=== PATIENT | male | born 1955 | race Caucasian/White ===

== ENCOUNTER 2017-02-25 11:25 | Inpatient (IN) | payer MEDICAID ==
[~2017-02-25] VITALS: Ht 175.3 cm; Wt 83.9 kg
[2017-02-25] MEDS ORDERED: IBUPROFEN 600MG TABLET PO STA (11:50)
[2017-02-25 12:07] LABS: BASOPHILS % 0.4 % (0.0-2.0); HEMATOCRIT. 46.8 % (42.0-52.0); HEMOGLOBIN. 15.9 g/dL (14.0-18.0); LYMPHOCYTES % 9.8 % (20.0-50.0); MEAN CORPUSCULAR HEMOGLOBIN 31.3 pg (28.0-32.0); MEAN CORPUSCULAR VOLUME 91.9 fL (80.0-94.0); MONOCYTES % 8.4 % (2.0-8.0); NEUTROPHILS % 81.4 % (40.0-76.0); PLATELET 61 x1000/uL (130-400); RED BLOOD CELL COUNT 5.09 mill/uL (4.7-6.1); RED CELL DISTRIBUTION WIDTH 15.5 % (11.6-14.6)
[2017-02-25 12:15] LABS: PROTHROMBIN TIME 10.1 sec (9.4-11.6)
[2017-02-25 12:30] LABS: CARBON DIOXIDE 22 mEq/L (21-32); CHLORIDE 93 mEq/L (98-107); CREATINE KINASE 188 IU/L (39-308)
[2017-02-25 12:45] LABS: ETHANOL BLOOD 319 mg/dL
[2017-02-25] MEDS ORDERED: SODIUM CHLORIDE 0.9% 1,000 ML IV ONE (14:00)
[2017-02-25] MEDS ORDERED: LORAZEPAM 1MG TABLET PO ONE (17:15)
[2017-02-25] MEDS ORDERED: LORAZEPAM 2MG/ML CPJ IV ONE (22:00)
[2017-02-26] VITALS: BP 129/77
[2017-02-26] MEDS ORDERED: LORAZEPAM 2MG/ML CPJ IV ONE ×3 (01:30→15:15)
[2017-02-26] MEDS ORDERED: ONDANSETRON HCL 4MG/2ML VIAL IV ONE (09:30)
[2017-02-26] MEDS ORDERED: FOLIC ACID 1 MG, THIAMINE HCL 100 MG, MVI, ADULT NO.1 10 ML in DEXTROSE 5% WATER 1,000 ML IV ONE ×4 (15:15)
[2017-02-26 20:00] VITALS: BP 149/91
[2017-02-26] MEDS ORDERED: GABA-529 PO (21:26)
[2017-02-26] MEDS ORDERED: QUET200T PO (21:26)
[2017-02-26] MEDS ORDERED: LISI-186 PO (21:26)
[2017-02-26] MEDS ORDERED: BACL20TA PO (21:26)
[2017-02-26] MEDS ORDERED: MIRT30TA7 PO (21:26)
[2017-02-26] MEDS ORDERED: THIA100T8 PO (21:26)
[2017-02-26] MEDS ORDERED: FOLI-43 PO (21:26)
[2017-02-26] MEDS ORDERED: AMIT25TA9 PO (21:26)
[2017-02-26] MEDS ORDERED: TAMS0.4C31 PO (21:26)
[2017-02-26] MEDS ORDERED: GUAIFENESIN 200MG/10ML SUGAR FREE UDC PO PRN (21:30)
[2017-02-26] MEDS ORDERED: MAGNESIUM/ALUMINUM HYDROXIDE/SIMETHICONE 30ML UDC PO PRN (21:30)
[2017-02-26] MEDS ORDERED: CLONIDINE 0.1MG TABLET PO PRN (21:30)
[2017-02-26] MEDS ORDERED: ACETAMINOPHEN 325MG TABLET PO PRN (21:30)
[2017-02-26] MEDS ORDERED: DIPHENHYDRAMINE 50MG/ML VIAL IV PRN (21:30)
[2017-02-26] MEDS ORDERED: LORAZEPAM 2MG/ML CPJ IV PRN (21:30)
[2017-02-26] MEDS ORDERED: ONDANSETRON HCL 4MG/2ML VIAL IV PRN (21:30)
[2017-02-26] MEDS: SODIUM CHLORIDE 0.9% 1,000 ML IV SCH (23:21)
[2017-02-27] MEDS ORDERED: MVI, ADULT NO.1 10 ML, FOLIC ACID 1 MG, THIAMINE HCL 100 MG in SODIUM CHLORIDE 0.9% 1,0... IV NR ×4
[2017-02-27] MEDS ORDERED: PHENYTOIN SODIUM 1,000 MG in SODIUM CHLORIDE 0.9% 80 ML IV NR (02:00)
[2017-02-27] MEDS: LORAZEPAM 2MG/ML CPJ IV PRN ×5 (03:19→20:18)
[2017-02-27 04:00] VITALS: BP 153/91
[2017-02-27] MEDS ORDERED: CHLORDIAZEPOXIDE 25MG CAPSULE PO SCH (06:00)
[2017-02-27 06:52] LABS: BASOPHILS % 0.5 % (0.0-2.0); EOSINOPHILS % 1.2 % (0.0-5.0); HEMATOCRIT. 43.2 % (42.0-52.0); HEMOGLOBIN. 14.6 g/dL (14.0-18.0); LYMPHOCYTES % 17.7 % (20.0-50.0); MEAN CORPUSCULAR HEMOGLOBIN 31.4 pg (28.0-32.0); MEAN CORPUSCULAR VOLUME 92.7 fL (80.0-94.0); MEAN PLATELET VOLUME 9.1 fl (7.4-10.4); MONOCYTES % 9.5 % (2.0-8.0); NEUTROPHILS % 71.1 % (40.0-76.0); PLATELET 62 x1000/uL (130-400); RED BLOOD CELL COUNT 4.66 mill/uL (4.7-6.1); RED CELL DISTRIBUTION WIDTH 15.4 % (11.6-14.6)
[2017-02-27 08:00] VITALS: BP 129/80
[2017-02-27 08:07] LABS: CARBON DIOXIDE 33 mEq/L (21-32); CHLORIDE 94 mEq/L (98-107)
[2017-02-27] MEDS ORDERED: MAGNESIUM 4 G PREMIX 100 ML IV SCH (09:00)
[2017-02-27] MEDS: TAMSULOSIN HCL 0.4MG SR CAPSULE PO SCH (11:06)
[2017-02-27 12:30] VITALS: BP 153/90
[2017-02-27] MEDS: CHLORDIAZEPOXIDE 25MG CAPSULE PO SCH ×2 (13:29→21:42)
[2017-02-27] MEDS: THIAMINE HCL 100MG TABLET PO SCH (13:33)
[2017-02-27 16:00] VITALS: BP 126/86
[2017-02-27] MEDS: IBUPROFEN 600MG TABLET PO PRN (19:49)
[2017-02-27 20:00] VITALS: BP 137/75
[2017-02-27] MEDS: QUETIAPINE FUMARATE 100MG TABLET PO SCH (23:19)
[2017-02-28] VITALS: BP 147/66
[2017-02-28] MEDS: LORAZEPAM 2MG/ML CPJ IM PRN ×4 (01:25→23:37)
[2017-02-28] MEDS: SODIUM CHLORIDE 0.9% 1,000 ML IV SCH ×4 (03:22→23:22)
[2017-02-28] MEDS: CHLORDIAZEPOXIDE 25MG CAPSULE PO SCH ×3 (05:28→20:53)
[2017-02-28 07:38] LABS: EOSINOPHILS % 2.7 % (0.0-5.0); HEMATOCRIT. 39.3 % (42.0-52.0); HEMOGLOBIN. 13.2 g/dL (14.0-18.0); LYMPHOCYTES % 30.5 % (20.0-50.0); MEAN CORPUSCULAR HEMOGLOBIN 31.2 pg (28.0-32.0); MEAN CORPUSCULAR VOLUME 92.9 fL (80.0-94.0); MONOCYTES % 8.2 % (2.0-8.0); NEUTROPHILS % 57.6 % (40.0-76.0); PLATELET 76 x1000/uL (130-400); RED BLOOD CELL COUNT 4.23 mill/uL (4.7-6.1); RED CELL DISTRIBUTION WIDTH 15.9 % (11.6-14.6)
[2017-02-28] MEDS ORDERED: LIDOCAINE HCL 1% 20ML VIAL (Pyxis) INJ ONE (07:58)
[2017-02-28] MEDS ORDERED: SODIUM BICARBONATE 4% (2.4MEQ) 5ML VIAL IV ONE (07:58)
[2017-02-28 08:00] VITALS: BP 114/68
[2017-02-28] MEDS: THIAMINE HCL 100MG TABLET PO SCH (08:42)
[2017-02-28] MEDS: TAMSULOSIN HCL 0.4MG SR CAPSULE PO SCH (08:42)
[2017-02-28 08:43] LABS: CARBON DIOXIDE 32 mEq/L (21-32); CHLORIDE 100 mEq/L (98-107)
[2017-02-28] MEDS: LORAZEPAM 2MG/ML CPJ IV PRN ×2 (10:46→15:52)
[2017-02-28 12:00] VITALS: BP 118/81
[2017-02-28] MEDS ORDERED: POTASSIUM CHLORIDE 20MEQ TABLET SR PO NR ×2 (14:45→21:00)
[2017-02-28 16:00] VITALS: BP 138/89
[2017-02-28 20:00] VITALS: BP 145/85
[2017-02-28] MEDS: PHENYTOIN SODIUM EXTENDED 100MG CAPSULE PO SCH (20:25)
[2017-02-28] MEDS: QUETIAPINE FUMARATE 100MG TABLET PO SCH (20:53)
[2017-02-28] MEDS ORDERED: MEDICATION NOT ON FORMULARY EA (Quetiapine Fumarate (Seroquel) 300 MG) PO SCH (21:00)
[2017-02-28] MEDS ORDERED: MAGNESIUM 4 G PREMIX 100 ML IV NR (21:00)
[2017-02-28] MEDS: MICONAZOLE NITRATE 2% OINT 71GM TOP SCH (21:02)
[2017-03-01] VITALS: BP 123/75
[2017-03-01] MEDS: LORAZEPAM 2MG/ML CPJ IM PRN ×2 (03:32→17:52)
[2017-03-01 04:00] VITALS: BP 145/85
[2017-03-01] MEDS: CHLORDIAZEPOXIDE 25MG CAPSULE PO SCH ×3 (05:04→21:17)
[2017-03-01 08:00] VITALS: BP 140/89
[2017-03-01 08:02] LABS: CARBON DIOXIDE 32 mEq/L (21-32); CHLORIDE 100 mEq/L (98-107)
[2017-03-01] MEDS: SODIUM CHLORIDE 0.9% 1,000 ML IV SCH (09:22)
[2017-03-01] MEDS: THIAMINE HCL 100MG TABLET PO SCH (09:22)
[2017-03-01] MEDS: PHENYTOIN SODIUM EXTENDED 100MG CAPSULE PO SCH (09:22)
[2017-03-01] MEDS: MICONAZOLE NITRATE 2% OINT 71GM TOP SCH ×2 (09:23→21:17)
[2017-03-01] MEDS: TAMSULOSIN HCL 0.4MG SR CAPSULE PO SCH (09:23)
[2017-03-01] MEDS: LORAZEPAM 2MG/ML CPJ IV PRN ×2 (09:25→13:52)
[2017-03-01] MEDS: IPRATROPIUM/ALBUTEROL 0.5-3(2.5)MG/3ML NEB INH PRN (11:50)
[2017-03-01 12:00] VITALS: BP 135/80
[2017-03-01 20:00] VITALS: BP 134/95
[2017-03-01] MEDS: QUETIAPINE FUMARATE 100MG TABLET PO SCH (21:32)
[2017-03-02 00:33] VITALS: BP 129/88
[2017-03-02 04:00] VITALS: BP 120/80
[2017-03-02] MEDS: CHLORDIAZEPOXIDE 25MG CAPSULE PO SCH ×3 (05:46→21:31)
[2017-03-02 08:00] VITALS: BP 144/76
[2017-03-02] MEDS ORDERED: THIAMINE HCL 100MG TABLET PO SCH (09:00)
[2017-03-02] MEDS: PHENYTOIN SODIUM EXTENDED 100MG CAPSULE PO SCH (10:04)
[2017-03-02] MEDS: MULTIVITAMINS,THER W-MINERALS TABLET PO SCH (10:04)
[2017-03-02] MEDS: QUETIAPINE FUMARATE 100MG TABLET PO SCH ×2 (10:04→21:31)
[2017-03-02] MEDS: THIAMINE HCL 100MG TABLET PO SCH (10:04)
[2017-03-02] MEDS: TAMSULOSIN HCL 0.4MG SR CAPSULE PO SCH (10:06)
[2017-03-02] MEDS: MICONAZOLE NITRATE 2% OINT 71GM TOP SCH ×2 (10:07→21:31)
[2017-03-02 12:00] VITALS: BP 116/72
[2017-03-02] MEDS: GABAPENTIN 300MG CAPSULE PO SCH ×2 (15:13→21:31)
[2017-03-02 16:00] VITALS: BP 122/83
[2017-03-02 20:00] VITALS: BP 118/73
[2017-03-03] VITALS: BP 106/67
[2017-03-03 04:00] VITALS: BP 132/83
[2017-03-03] MEDS: GABAPENTIN 300MG CAPSULE PO SCH ×2 (05:09→13:16)
[2017-03-03] MEDS: CHLORDIAZEPOXIDE 25MG CAPSULE PO SCH (05:09)
[2017-03-03 08:00] VITALS: BP_SYST 117
[2017-03-03] MEDS: IBUPROFEN 600MG TABLET PO PRN (09:49)
[2017-03-03] MEDS: PHENYTOIN SODIUM EXTENDED 100MG CAPSULE PO SCH (09:50)
[2017-03-03] MEDS: THIAMINE HCL 100MG TABLET PO SCH (09:50)
[2017-03-03] MEDS: QUETIAPINE FUMARATE 100MG TABLET PO SCH ×2 (09:51→20:37)
[2017-03-03] MEDS: MULTIVITAMINS,THER W-MINERALS TABLET PO SCH (09:51)
[2017-03-03] MEDS: MICONAZOLE NITRATE 2% OINT 71GM TOP SCH ×2 (09:51→20:37)
[2017-03-03] MEDS: TAMSULOSIN HCL 0.4MG SR CAPSULE PO SCH (09:51)
[2017-03-03] MEDS: IPRATROPIUM/ALBUTEROL 0.5-3(2.5)MG/3ML NEB INH PRN ×5 (10:05→21:36)
[2017-03-03 12:00] VITALS: BP 96/68
[2017-03-03] MEDS ORDERED: GABAPENTIN 400MG CAPSULE PO SCH (13:15)
[2017-03-03 20:00] VITALS: BP 99/59
[2017-03-03] MEDS: GABAPENTIN 400MG CAPSULE PO SCH (20:37)
[2017-03-04] VITALS: BP 112/60
[2017-03-04] MEDS: IPRATROPIUM/ALBUTEROL 0.5-3(2.5)MG/3ML NEB INH PRN ×4 (00:12→13:18)
[2017-03-04] MEDS: IBUPROFEN 600MG TABLET PO PRN (03:49)
[2017-03-04 04:00] VITALS: BP 119/81
[2017-03-04 08:00] VITALS: BP 149/82
[2017-03-04] MEDS: PHENYTOIN SODIUM EXTENDED 100MG CAPSULE PO SCH (08:30)
[2017-03-04] MEDS: TAMSULOSIN HCL 0.4MG SR CAPSULE PO SCH (08:31)
[2017-03-04] MEDS: THIAMINE HCL 100MG TABLET PO SCH (08:32)
[2017-03-04] MEDS: MULTIVITAMINS,THER W-MINERALS TABLET PO SCH (08:32)
[2017-03-04] MEDS: GABAPENTIN 400MG CAPSULE PO SCH (08:32)
[2017-03-04] MEDS: QUETIAPINE FUMARATE 100MG TABLET PO SCH (08:33)
[2017-03-04 12:00] VITALS: BP 139/80
[2017-03-04 12:25] VITALS: BP 139/80
== END 2017-03-04 16:20 | DRG 816 ==
LOC: ER 11:40 → 7WST 02-26 15:23 → ENRESERV 02-26 16:56 → 7WST 02-27 15:27
PROVIDERS: ADMIT Internal Medicine; ATTEND Internal Medicine
PROC: 02H633Z Insertion of Infusion Device into Right Atrium, Percutaneous Approach (ICD-10-PCS; principal; 2017-02-28)
PROC: B5181ZA Fluoroscopy of Superior Vena Cava using Low Osmolar Contrast, Guidance (ICD-10-PCS; 2017-02-28)
PROC: B548ZZA Ultrasonography of Superior Vena Cava, Guidance (ICD-10-PCS; 2017-02-28)
DX: T51.91XA Toxic effect of unspecified alcohol, accidental (unintentional), initial encounter (principal); D69.6 Thrombocytopenia, unspecified; E87.8 Other disorders of electrolyte and fluid balance, not elsewhere classified; E44.0 Moderate protein-calorie malnutrition; G31.2 Degeneration of nervous system due to alcohol; E83.42 Hypomagnesemia; E83.51 Hypocalcemia; F10.239 Alcohol dependence with withdrawal, unspecified; F32.9 Major depressive disorder, single episode, unspecified; F41.1 Generalized anxiety disorder; J44.9 Chronic obstructive pulmonary disease, unspecified; N40.0 Benign prostatic hyperplasia without lower urinary tract symptoms; Z80.9 Family history of malignant neoplasm, unspecified; Z82.49 Family history of ischemic heart disease and other diseases of the circulatory system; Z98.1 Arthrodesis status; Z86.73 Personal history of transient ischemic attack (TIA), and cerebral infarction without residual deficits; G40.909 Epilepsy, unspecified, not intractable, without status epilepticus; M48.00 Spinal stenosis, site unspecified; Z79.899 Other long term (current) drug therapy; Z88.8 Allergy status to other drugs, medicaments and biological substances; Z60.2 Problems related to living alone; Y90.9 Presence of alcohol in blood, level not specified
CPT/HCPCS: 36415; 36569; 70450; 71010; 76937; 77001; 80048; 80053; 80185; 82550; 83735; 85025; 85610; 93005; 94640; 94664; 96361; 96365; 96366; 96375; 96376; 97110; 97116; 97162; 99285; A6261; C1725; C1893; G0482; J1165; J2060; J2405; J3411; J3475; J3490; J7030; J7040; J7050; J7070; J7620

== ENCOUNTER 2017-05-09 10:28 | Emergency (ER) | payer MEDICAID ==
[~2017-05-09] VITALS: Ht 177.8 cm; Wt 90.0 kg
[~2017-05-09 10:28] MED LIST: AMIT25TA9 PO; BACL20TA PO; FOLI-43 PO; GABA-529 PO; LISI-186 PO; MIRT30TA7 PO; QUET200T PO; TAMS0.4C31 PO; THIA100T8 PO
[2017-05-09 11:03] LABS: HEMATOCRIT. 41.8 % (42.0-52.0); MEAN CORPUSCULAR HEMOGLOBIN 31.1 pg (28.0-32.0); MEAN CORPUSCULAR VOLUME 92.7 fL (80.0-94.0); MEAN PLATELET VOLUME 8.5 fl (7.4-10.4); PLATELET 157 x1000/uL (130-400); RED BLOOD CELL COUNT 4.51 mill/uL (4.7-6.1); RED CELL DISTRIBUTION WIDTH 15.1 % (11.6-14.6)
[2017-05-09 11:04] LABS: CLARITY URINE CLEAR (CLEAR); COLOR URINE DARK YELLOW (YELLOW); GLUCOSE URINE NEGATIVE (NEGATIVE); KETONES URINE 1+ (NEGATIVE); LEUKOCYTE ESTERASE URINE NEGATIVE (NEGATIVE); NITRITE URINE NEGATIVE (NEGATIVE); OCCULT BLOOD URINE NEGATIVE (NEGATIVE); PROTEIN URINE TRACE (NEGATIVE); SPECIFIC GRAVITY URINE 1.032 (1.005-1.030)
[2017-05-09 11:12] LABS: CARBON DIOXIDE 29 mEq/L (21-32); CHLORIDE 103 mEq/L (98-107); ETHANOL BLOOD 223 mg/dL
[2017-05-09 11:25] LABS: *AMPHETAMINES SCREEN URINE PRESUMTIVE POSITIVE (NEGATIVE); *BARBITURATES SCREEN URINE NEGATIVE (NEGATIVE); *BENZODIAZEPINES SCREEN URINE PRESUMTIVE POSITIVE (NEGATIVE); *COCAINE SCREEN URINE NEGATIVE (NEGATIVE); CANNABINOID URINE SCREEN PRESUMTIVE POSITIVE (NEGATIVE); METHADONE URINE SCREEN NEGATIVE (NEGATIVE); OPIATES URINE SCREEN NEGATIVE (NEGATIVE); PHENCYCLIDINE URINE SCREEN NEGATIVE (NEGATIVE)
[2017-05-09 11:55] LABS: BG BASE EXCESS 0.8 mmol/L (-2.0-2.0); BG CARBOXYHEMOGLOBIN 2.4 % (0.5-1.5); BG DEOXYHEMOGLOBIN 3.1 % (0.0-5.0); BG FRACTION INSPIRED OXYGEN 28; BG HCO3 ACT 27.9 mmol/L (22.0-26.0); BG METHEMOGLOBIN 0.4 % (0.0-1.5); BG OXYGEN SATURATION 96.8 % (92.0-98.5); BG OXYHEMOGLOBIN 94.1 % (94.0-97.0); BG PCO2 54.3 mmHg (35.0-45.0); BG PH 7.328 (7.350-7.450); BG PO2 98.8 mmHg (75.0-100.0); BG SAMPLE SITE RIGHT BRACHIAL; BG TOTAL HEMOGLOBIN 14.5 g/dL (12.0-18.0); BG VENT MODE NASAL CANNULA
[2017-05-09 12:02] LABS: PLATELET ESTIMATE NORMAL
[2017-05-09] MEDS ORDERED: SODIUM CHLORIDE 0.9% 1,000 ML IV ONE (14:30)
[2017-05-09 18:09] VITALS: BP 153/98
== END 2017-05-09 19:30 | disposition home or self-care (01) ==
LOC: ER 10:41
DX: F10.129 Alcohol abuse with intoxication, unspecified (principal); F15.90 Other stimulant use, unspecified, uncomplicated; F12.10 Cannabis abuse, uncomplicated; F13.10 Sedative, hypnotic or anxiolytic abuse, uncomplicated; J44.9 Chronic obstructive pulmonary disease, unspecified; F32.9 Major depressive disorder, single episode, unspecified; Y90.7 Blood alcohol level of 200-239 mg/100 ml
CPT/HCPCS: 36415; 36600; 70450; 71010; 80053; 80305; 81001; 82375; 82805; 85025; 96360; 96361; 99285; G0482; Z7610; J7030

== ENCOUNTER 2018-09-23 12:13 | Inpatient (IN) | payer MEDICARE, MEDICAID ==
[~2018-09-23] VITALS: Ht 172.7 cm; Wt 75.8 kg
[~2018-09-23 12:13] MED LIST changes: -THIA100T8 PO; +THIA100T88 PO
[2018-09-23] MEDS ORDERED: IPRATROPIUM BROMIDE (0.02%) 0.5MG/2.5ML NEB HHN STA (12:46)
[2018-09-23] MEDS ORDERED: ALBUTEROL (0.083%) 2.5MG/3ML NEB HHN STA (12:46)
[2018-09-23] MEDS ORDERED: METHYLPREDNISOLONE SOD SUCC 125 MG/2 ML VIAL IV STA (12:46)
[2018-09-23] MEDS ORDERED: VANCOMYCIN 1 G PREMIX 200 ML IV ONE (13:00)
[2018-09-23] MEDS ORDERED: PIPERACILLIN/TAZ 3.375G PREMIX 50 ML IV ONE (13:00)
[2018-09-23] MEDS ORDERED: NITROGLYCERIN 0.4MG TABLET SL SL PRN (13:00)
[2018-09-23] MEDS ORDERED: SODIUM CHLORIDE 0.9% 1000ML BAG (SEPSIS BOLUS) IV ONE (13:00)
[2018-09-23] MEDS ORDERED: ASPIRIN 81MG TABLET PO ONE (13:00)
[2018-09-23 13:17] LABS: BASOPHILS % 1.1 % (0.0-2.0); EOSINOPHILS % 2.4 % (0.0-5.0); HEMATOCRIT. 41.4 % (42.0-52.0); HEMOGLOBIN. 13.9 g/dL (14.0-18.0); LYMPHOCYTES % 16.8 % (20.0-50.0); MEAN CORPUSCULAR HEMOGLOBIN 32.4 pg (28.0-32.0); MEAN CORPUSCULAR VOLUME 96.8 fL (80.0-94.0); MEAN PLATELET VOLUME 7.7 fl (7.4-10.4); MONOCYTES % 11.6 % (2.0-8.0); NEUTROPHILS % 68.1 % (40.0-76.0); PLATELET 311 x1000/uL (130-400); RED BLOOD CELL COUNT 4.27 mill/uL (4.7-6.1); RED CELL DISTRIBUTION WIDTH 15.2 % (11.6-14.6)
[2018-09-23 13:22] LABS: CHLORIDE 103 mEq/L (98-107)
[2018-09-23 13:24] LABS: INR 0.9; PROTHROMBIN TIME 9.8 sec (9.6-11.0)
[2018-09-23] MEDS ORDERED: LIDOCAINE HCL 1% 20ML VIAL (Pyxis) INJ ONE (13:52)
[2018-09-23] MEDS ORDERED: IOHEXOL-350 100 ML BOTTLE ONE (15:22)
[2018-09-23] MEDS ORDERED: MAGNESIUM/ALUMINUM HYDROXIDE/SIMETHICONE 30ML UDC PO PRN (17:00)
[2018-09-23] MEDS ORDERED: HYDROCODONE/ACETAMINOPHEN 10/325MG TABLET PO PRN (17:00)
[2018-09-23] MEDS ORDERED: GUAIFENESIN 200MG/10ML SUGAR FREE UDC PO PRN (17:00)
[2018-09-23] MEDS ORDERED: IPRATROPIUM/ALBUTEROL 0.5-3(2.5)MG/3ML NEB INH PRN (17:00)
[2018-09-23] MEDS ORDERED: HYDROMORPHONE HCL/PF 2MG/ML CPJ IV PRN (17:00)
[2018-09-23] MEDS ORDERED: HYDRALAZINE 20MG/ML VIAL IV PRN (17:00)
[2018-09-23] MEDS ORDERED: DIPHENHYDRAMINE 50MG/ML VIAL IV PRN (17:00)
[2018-09-23] MEDS ORDERED: DOCUSATE SODIUM 100MG CAPSULE PO PRN (17:00)
[2018-09-23] MEDS ORDERED: ACETAMINOPHEN 325MG TABLET PO PRN (17:00)
[2018-09-23] MEDS ORDERED: ONDANSETRON HCL 4MG/2ML INJ IV PRN (17:00)
[2018-09-23] MEDS ORDERED: PIPERACILLIN/TAZ 3.375G PREMIX 50 ML IV SCH (20:00)
[2018-09-23 22:45] VITALS: BP 162/92
[2018-09-23 23:13] VITALS: BP 162/92
[2018-09-23 23:58] LABS: CREATINE KINASE 90 IU/L (39-308)
[2018-09-23 23:59] LABS: CREATINE KINASE MB FRACTION 5.3 ng/mL (0.5-3.6)
[2018-09-24] VITALS: BP 168/89
[2018-09-24] MEDS ORDERED: VANCOMYCIN 750 MG PREMIX 150 ML IV SCH
[2018-09-24] MEDS ORDERED: PIPERACILLIN/TAZ 3.375G PREMIX 50 ML IV SCH (02:00)
[2018-09-24 04:00] VITALS: BP 165/98
[2018-09-24] MEDS: SODIUM CHLORIDE 0.9% INJ 3ML FLUSH IVF SCH ×3 (05:04→22:00)
[2018-09-24] MEDS: PIPERACILLIN/TAZ 3.375G PREMIX 50 ML IV SCH ×3 (05:04→20:58)
[2018-09-24] MEDS: HEPARIN 100 UNITS/1 ML VIAL IVF SCH ×2 (06:00→14:00)
[2018-09-24] MEDS: CLONIDINE 0.1MG TABLET PO PRN ×3 (06:30→20:58)
[2018-09-24 06:49] LABS: HEMATOCRIT. 41.8 % (42.0-52.0); HEMOGLOBIN. 14.2 g/dL (14.0-18.0); MEAN CORPUSCULAR HEMOGLOBIN 32.9 pg (28.0-32.0); MEAN CORPUSCULAR VOLUME 96.7 fL (80.0-94.0); MEAN PLATELET VOLUME 8.2 fl (7.4-10.4); PLATELET 322 x1000/uL (130-400); RED BLOOD CELL COUNT 4.33 mill/uL (4.7-6.1); RED CELL DISTRIBUTION WIDTH 15.7 % (11.6-14.6)
[2018-09-24 07:02] LABS: CHLORIDE 107 mEq/L (98-107)
[2018-09-24 07:28] LABS: CREATINE KINASE 95 IU/L (39-308)
[2018-09-24 07:29] LABS: CREATINE KINASE MB FRACTION 5.7 ng/mL (0.5-3.6); T4 FREE 0.98 ng/dL (0.76-1.46)
[2018-09-24 08:07] VITALS: BP 183/109
[2018-09-24] MEDS: ASPIRIN 81MG EC TABLET PO SCH (08:28)
[2018-09-24] MEDS: ENOXAPARIN 40MG/0.4ML SYR SUBCUT SCH (08:30)
[2018-09-24 10:30] LABS: T4 FREE 0.92 ng/dL (0.76-1.46)
[2018-09-24] MEDS ORDERED: FOLIC ACID 1 MG, THIAMINE HCL 100 MG, MVI, ADULT NO.1 10 ML in DEXTROSE 5% WATER 1,000 ML IV ONE ×4 (11:30)
[2018-09-24 11:40] LABS: PLATELET ESTIMATE NORMAL
[2018-09-24] MEDS ORDERED: REGADENOSON 0.4 MG/5 ML IV SCH (12:00)
[2018-09-24 12:05] VITALS: BP 157/92
[2018-09-24 14:39] LABS: CREATINE KINASE 81 IU/L (39-308)
[2018-09-24 14:40] LABS: CREATINE KINASE MB FRACTION 5.4 ng/mL (0.5-3.6)
[2018-09-24] MEDS: VANCOMYCIN 1 G PREMIX 200 ML IV SCH (15:13)
[2018-09-24 16:00] VITALS: BP 140/89
[2018-09-24 20:45] VITALS: BP 159/98
[2018-09-24] MEDS: TAMSULOSIN HCL 0.4MG SR CAPSULE PO SCH (20:57)
[2018-09-25] VITALS: BP 121/68
[2018-09-25 00:15] LABS: CREATINE KINASE 80 IU/L (39-308)
[2018-09-25 00:16] LABS: CREATINE KINASE MB FRACTION 5.6 ng/mL (0.5-3.6)
[2018-09-25] MEDS: HEPARIN 100 UNITS/1 ML VIAL IVF SCH (01:32)
[2018-09-25] MEDS: VANCOMYCIN 1 G PREMIX 200 ML IV SCH (01:35)
[2018-09-25 04:00] VITALS: BP 129/77
[2018-09-25] MEDS: SODIUM CHLORIDE 0.9% INJ 3ML FLUSH IVF SCH ×3 (05:45→22:00)
[2018-09-25] MEDS: PIPERACILLIN/TAZ 3.375G PREMIX 50 ML IV SCH ×3 (05:45→21:59)
[2018-09-25 08:00] VITALS: BP 116/79
[2018-09-25] MEDS: ASPIRIN 81MG EC TABLET PO SCH (08:00)
[2018-09-25] MEDS: ENOXAPARIN 40MG/0.4ML SYR SUBCUT SCH (08:01)
[2018-09-25 10:32] LABS: CREATINE KINASE 73 IU/L (39-308)
[2018-09-25 10:33] LABS: CREATINE KINASE MB FRACTION 5.2 ng/mL (0.5-3.6)
[2018-09-25 12:00] VITALS: BP 143/82
[2018-09-25] MEDS: VANCOMYCIN 1500MG in DEXTROSE 5% WATER 250ML IV SCH ×2 (13:03→22:00)
[2018-09-25] MEDS ORDERED: BACLOFEN 20 MG PO SCH (14:30)
[2018-09-25] MEDS: FOLIC ACID 1MG TABLET PO SCH (14:50)
[2018-09-25] MEDS: THIAMINE HCL 100MG TABLET PO SCH (14:50)
[2018-09-25] MEDS ORDERED: BACLOFEN 20MG TABLET PO PRN (15:30)
[2018-09-25 16:00] VITALS: BP 157/96
[2018-09-25] MEDS: MIRTAZAPINE 30MG TABLET PO SCH (16:00)
[2018-09-25] MEDS ORDERED: GABAPENTIN 200 MG PO SCH (17:00)
[2018-09-25] MEDS: AMITRIPTYLINE 25MG TABLET PO SCH (17:00)
[2018-09-25] MEDS: LISINOPRIL 5MG TABLET PO SCH (17:00)
[2018-09-25] MEDS: GABAPENTIN 100MG CAPSULE PO SCH (17:00)
[2018-09-25 20:00] VITALS: BP 165/91
[2018-09-25] MEDS ORDERED: MEDICATION NOT ON FORMULARY EA (Quetiapine Fumarate (Seroquel) 300 MG) PO SCH (21:00)
[2018-09-25] MEDS: CLONIDINE 0.1MG TABLET PO PRN (21:57)
[2018-09-25] MEDS: QUETIAPINE FUMARATE 100MG TABLET PO SCH (21:58)
[2018-09-25] MEDS: TAMSULOSIN HCL 0.4MG SR CAPSULE PO SCH (21:58)
[2018-09-26] VITALS: BP 149/84
[2018-09-26] MEDS: PIPERACILLIN/TAZ 3.375G PREMIX 50 ML IV SCH ×2 (05:08→10:54)
[2018-09-26] MEDS: SODIUM CHLORIDE 0.9% INJ 3ML FLUSH IVF SCH ×3 (06:00→22:27)
[2018-09-26 07:12] LABS: HEMATOCRIT. 40.6 % (42.0-52.0); HEMOGLOBIN. 13.4 g/dL (14.0-18.0); MEAN CORPUSCULAR HEMOGLOBIN 32.2 pg (28.0-32.0); MEAN CORPUSCULAR VOLUME 97.7 fL (80.0-94.0); PLATELET 240 x1000/uL (130-400); RED BLOOD CELL COUNT 4.15 mill/uL (4.7-6.1); RED CELL DISTRIBUTION WIDTH 16.4 % (11.6-14.6)
[2018-09-26 07:30] LABS: CHLORIDE 106 mEq/L (98-107)
[2018-09-26 08:00] VITALS: BP 143/78
[2018-09-26] MEDS ORDERED: THIAMINE HCL 100 MG PO SCH (09:00)
[2018-09-26] MEDS ORDERED: AMITRIPTYLINE HCL 25 MG PO SCH (09:00)
[2018-09-26] MEDS ORDERED: MEDICATION NOT ON FORMULARY EA (Lisinopril 5 MG) PO SCH (09:00)
[2018-09-26] MEDS ORDERED: MIRTAZAPINE 30 MG PO SCH (09:00)
[2018-09-26] MEDS ORDERED: MEDICATION NOT ON FORMULARY EA (Folic Acid 1 MG) PO SCH (09:00)
[2018-09-26 09:42] LABS: PLATELET ESTIMATE NORMAL
[2018-09-26] MEDS: ASPIRIN 81MG EC TABLET PO SCH (09:59)
[2018-09-26] MEDS: THIAMINE HCL 100MG TABLET PO SCH (09:59)
[2018-09-26] MEDS: GABAPENTIN 100MG CAPSULE PO SCH (09:59)
[2018-09-26] MEDS: AMITRIPTYLINE 25MG TABLET PO SCH (09:59)
[2018-09-26] MEDS: MIRTAZAPINE 30MG TABLET PO SCH (09:59)
[2018-09-26] MEDS: LISINOPRIL 5MG TABLET PO SCH (10:00)
[2018-09-26] MEDS: FOLIC ACID 1MG TABLET PO SCH (10:00)
[2018-09-26] MEDS: ENOXAPARIN 40MG/0.4ML SYR SUBCUT SCH (10:16)
[2018-09-26] MEDS: LORAZEPAM 2MG/ML CPJ IV PRN ×2 (10:16→20:06)
[2018-09-26 12:00] VITALS: BP 101/80
[2018-09-26] MEDS ORDERED: LIDOCAINE HCL 1% 20ML VIAL (Pyxis) INJ INFIL NR (12:15)
[2018-09-26] MEDS ORDERED: REGADENOSON 0.4 MG/5 ML IV ONE (13:06)
[2018-09-26] MEDS: GABAPENTIN 400MG CAPSULE PO SCH ×2 (13:50→17:32)
[2018-09-26 16:00] VITALS: BP 164/90
[2018-09-26 20:00] VITALS: BP 165/90
[2018-09-26] MEDS: TAMSULOSIN HCL 0.4MG SR CAPSULE PO SCH (21:07)
[2018-09-26] MEDS: CLONIDINE 0.1MG TABLET PO PRN (21:07)
[2018-09-26] MEDS: QUETIAPINE FUMARATE 100MG TABLET PO SCH (21:57)
[2018-09-27] VITALS: BP 170/100
[2018-09-27 04:00] VITALS: BP 140/77
[2018-09-27] MEDS: SODIUM CHLORIDE 0.9% INJ 3ML FLUSH IVF SCH (05:21)
[2018-09-27] MEDS: LORAZEPAM 2MG/ML CPJ IV PRN (06:03)
[2018-09-27 08:00] VITALS: BP 136/90
[2018-09-27] MEDS: LISINOPRIL 5MG TABLET PO SCH (09:00)
[2018-09-27] MEDS: ENOXAPARIN 40MG/0.4ML SYR SUBCUT SCH (09:00)
[2018-09-27] MEDS: AMITRIPTYLINE 25MG TABLET PO SCH (09:00)
[2018-09-27] MEDS: THIAMINE HCL 100MG TABLET PO SCH (09:00)
[2018-09-27] MEDS: GABAPENTIN 400MG CAPSULE PO SCH ×2 (09:00→13:59)
[2018-09-27] MEDS: MIRTAZAPINE 30MG TABLET PO SCH (09:00)
[2018-09-27] MEDS: ASPIRIN 81MG EC TABLET PO SCH (09:00)
[2018-09-27] MEDS: FOLIC ACID 1MG TABLET PO SCH (09:00)
[2018-09-27 12:00] VITALS: BP 117/62
[2018-09-27 16:00] VITALS: BP 135/85
[2018-09-27 16:13] VITALS: BP 135/85
[2018-09-27 18:09] LABS: *AMPHETAMINES SCREEN URINE PRESUMTIVE POSITIVE (NEGATIVE); *BARBITURATES SCREEN URINE NEGATIVE (NEGATIVE); *BENZODIAZEPINES SCREEN URINE NEGATIVE (NEGATIVE); *COCAINE SCREEN URINE PRESUMTIVE POSITIVE (NEGATIVE); METHADONE URINE SCREEN NEGATIVE (NEGATIVE)
[2018-09-27 18:11] LABS: CANNABINOID URINE SCREEN NEGATIVE (NEGATIVE); OPIATES URINE SCREEN NEGATIVE (NEGATIVE); PHENCYCLIDINE URINE SCREEN NEGATIVE (NEGATIVE)
== END 2018-09-27 18:15 | disposition home or self-care (01) | DRG 951 ==
LOC: ER 12:13 → 5WST 16:07 → EDBEDREQ 16:11 → EDBEDREQTM 16:11 → ENRESERV 20:54
PROVIDERS: ADMIT Internal Medicine; ATTEND Internal Medicine
PROC: 02HV33Z Insertion of Infusion Device into Superior Vena Cava, Percutaneous Approach (ICD-10-PCS; 2018-09-23)
PROC: B548ZZA Ultrasonography of Superior Vena Cava, Guidance (ICD-10-PCS; 2018-09-23)
PROC: 0JDQ0ZZ Extraction of Right Foot Subcutaneous Tissue and Fascia, Open Approach (ICD-10-PCS; principal; 2018-09-26)
PROC: 0JBQ0ZZ Excision of Right Foot Subcutaneous Tissue and Fascia, Open Approach (ICD-10-PCS; 2018-09-26)
DX: I24.9 Acute ischemic heart disease, unspecified (principal); G62.1 Alcoholic polyneuropathy; J44.9 Chronic obstructive pulmonary disease, unspecified; K75.9 Inflammatory liver disease, unspecified; R07.89 Other chest pain; L97.419 Non-pressure chronic ulcer of right heel and midfoot with unspecified severity; R26.9 Unspecified abnormalities of gait and mobility; I10 Essential (primary) hypertension; G40.909 Epilepsy, unspecified, not intractable, without status epilepticus; F15.90 Other stimulant use, unspecified, uncomplicated; F32.9 Major depressive disorder, single episode, unspecified; E78.00 Pure hypercholesterolemia, unspecified; E78.5 Hyperlipidemia, unspecified; F12.90 Cannabis use, unspecified, uncomplicated; F17.210 Nicotine dependence, cigarettes, uncomplicated; Z79.01 Long term (current) use of anticoagulants; Z86.711 Personal history of pulmonary embolism; Z86.718 Personal history of other venous thrombosis and embolism; Z86.73 Personal history of transient ischemic attack (TIA), and cerebral infarction without residual deficits; Z91.14 Patient's other noncompliance with medication regimen; Z91.19 Patient's noncompliance with other medical treatment and regimen; Z88.8 Allergy status to other drugs, medicaments and biological substances; Z79.899 Other long term (current) drug therapy
CPT/HCPCS: 36415; 36569; 71045; 71275; 73630; 76937; 78452; 80048; 80061; 80202; 80305; 82550; 82553; 83036; 83605; 83880; 84134; 84145; 84439; 84443; 84481; 84484; 85379; 87070; 87077; 87186; 93005; 93017; 93306; 93970; 94644; 96365; 96366; 96368; 96375; 97162; 99285; A9500; C1725; J0360; J1642; J1650; J2060; J2543; J2785; J2930; J3370; J3411; J3490; J7030; J7040; J7060; J7070; J7611; Q9967